=== PATIENT | male | born 1965 | race Caucasian/White ===

== ENCOUNTER 2020-12-29 03:58 | Emergency (ER) | payer MEDICAID, OTHER ==
[2020-12-29] MEDS ORDERED: TORAdol 30 mg Injection IM ONE (04:20)
[2020-12-29] MEDS ORDERED: Adacel Vial IM ONE ×2 (04:21→05:23)
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
[2020-12-29] MEDS ORDERED: TORAdol 30 mg Injection ONE (05:22)
[2020-12-29 05:36] VITALS: BP 123/62; PULSE 82; O2SAT 98
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
== END 2020-12-29 05:37 | disposition home or self-care (01) ==
LOC: ED 03:58
DX: F10.10 Alcohol abuse, uncomplicated (principal); S01.81XA Laceration without foreign body of other part of head, initial encounter; Y04.0XXA Assault by unarmed brawl or fight, initial encounter; Y93.89 Activity, other specified; Y92.89 Other specified places as the place of occurrence of the external cause; Y99.9 Unspecified external cause status; S00.83XA Contusion of other part of head, initial encounter; S60.511A Abrasion of right hand, initial encounter
CPT/HCPCS: 12011; 70450; 90471; 90715; 96372; 99284; J1885

== ENCOUNTER 2024-07-10 19:06 | Emergency (ER) | payer SELFPAY | END 2024-07-10 19:46 | disposition left against medical advice (07) | LOC: ED 19:06 | DX: Z53.21 Procedure and treatment not carried out due to patient leaving prior to being seen by health care provider (principal) ==